=== PATIENT | female | born 1985 | race Caucasian/White ===

== ENCOUNTER 2022-02-07 08:56 | Emergency (ER) | payer OTHER ==
[~2022-02-07] VITALS: Ht 149.9 cm; Wt 93.0 kg
[2022-02-07 08:59] VITALS: BP_SYST 118
--- NOTE | 2022-02-07 09:09 | NUR ---
Patient to ER bed 08 to gown for evaluation. Side rails up. Report given to DANITZA Colin.
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
[2022-02-07] MEDS ORDERED: KETOROLAC TROMETHAMINE 30 MG VIAL IM ONE (09:15)
--- NOTE | 2022-02-07 09:32 | NUR ---
Pt with Radiology at this time, transferred via wc.
[2022-02-07 10:12] VITALS: BP_SYST 118
--- NOTE | 2022-02-07 10:45 | NUR ---
Patient given written and verbal discharge instructions and verbalizes understanding. ER MD discussed with patient the results and treatment provided. Patient in stable condition. ID arm band removed. Opportunity for questions provided and answered. Medication side effect fact sheet provided.
== END 2022-02-07 10:45 | disposition home or self-care (01) ==
LOC: SED 08:56
DX: S10.93XA Contusion of unspecified part of neck, initial encounter (principal); S40.012A Contusion of left shoulder, initial encounter; M54.9 Dorsalgia, unspecified; Z79.899 Other long term (current) drug therapy; V49.40XA Driver injured in collision with unspecified motor vehicles in traffic accident, initial encounter; Y93.89 Activity, other specified; Y92.89 Other specified places as the place of occurrence of the external cause; Y99.8 Other external cause status
CPT/HCPCS: 99284; 71046; 72040; 73030; 81025; 96372; J1885